=== PATIENT | male | born 2000 | race Caucasian/White ===

== ENCOUNTER 2020-07-11 04:18 | Emergency (ER) | payer OTHER ==
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
[2020-07-11 05:30] LABS: Absolute Neutrophil Ct (ANC) 7.53 (1.4-6.9); BASOPHIL % 0.6 % (0.0-0.4); Basophil (Absolute #) 0.07 (0-0.4); Eosinophil % 1.2 % (0.00-5.0); Eosinophil (Absolute #) 0.13 (0-0.5); Hematocrit 44.5 % (42-50); Hemoglobin 15.1 gm/dl (12.5-18.0); Lymphocytes % 21.2 % (24.0-44.0); Mean Cell Volume 83.6 fl (78-100); Mean Corpuscular Hemoglobin 28.4 pg (26-32); Mean Corpuscular Hgb Concent. 33.9 g/dl (32-36); Mean Platelet Volume 11.3 fl (7.5-11.0); Monocyte (Absolute #) 0.83 (0.0-1.3); Monocytes % 7.6 % (0.0-12.0); Neutrophil % 69.4 % (36.0-66.0); Platelet Count 316 K/mm3 (150-450); Red Blood Count 5.32 M/mm3 (4.1-5.6); Red Cell Distribution Width 12.2 % (11.5-14.0); White Blood Count 10.9 K/mm3 (4.0-10.5)
[2020-07-11 05:32] VITALS: BP 143/86; PULSE 70; O2SAT 98
[2020-07-11 05:41] LABS: Appearance CLEAR (CLEAR); Bilirubin NEGATIVE (NEGATIVE); Blood NEGATIVE Ery/ul (0-5); Glucose NEGATIVE (NEGATIVE); Ketones NEGATIVE (NEGATIVE); Leukocyte Esterase NEGATIVE (NEGATIVE); Mucus SLIGHT /HPF (NEGATIVE); Nitrite NEGATIVE (NEGATIVE); Protein,Urine Dip NEGATIVE (Negative); Specific Gravity 1.015 (1.005-1.025); Urobilinogen NEGATIVE mg/dL (0-1)
[2020-07-11 05:42] LABS: ALKALINE PHOSPHATASE 61 U/L (38-126); ANION GAP 12.7 MEQ/L (5-15); BLOOD UREA NITROGEN 15 mg/dL (9-20); CHLORIDE 101 mmol/L (98-107); Calcium 9.8 mg/dL (8.4-10.2); Carbon Dioxide 27 mmol/L (22-30); Creatinine 1 0.75 mg/dL (0.66-1.25); EST GLOMERULAR FILTRATION RATE > 60.0 ML/MIN; Glucose 107 mg/dL (74-106); Potassium 3.7 mmol/L (3.5-5.1); SGOT/AST 27 U/L (17-59); SGPT/ALT 30 U/L (0-50); SODIUM 137 mmol/L (137-145); Total Protein 7.8 g/dL (6.3-8.2)
[2020-07-11 05:45] LABS: Bacteria NONE SEEN /HPF (NEGATIVE); WBC NONE SEEN /HPF (0-5)
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
== END 2020-07-11 05:29 | disposition home or self-care (01) ==
LOC: ED 04:18
DX: Z04.2 Encounter for examination and observation following work accident (principal)
CPT/HCPCS: 36415; 72050; 80053; 81001; 85025; 99284

== ENCOUNTER 2024-10-17 02:23 | Emergency (ER) | payer OTHER ==
--- NOTE | 2024-10-17 02:35 | ERPHSYRPT ---
- History of Present Illness Time Seen by Provider: 10/17/24 02:33 Source: patient Exam Limitations: no limitations Allergies/Adverse Reactions: No Known Drug Allergies Allergy (Unverified 07/11/20 04:20) Home Medications: No Reportable Medications [No Reported Medications] 07/11/20 [History] Hx Tetanus, Diphtheria Vaccination/Date Given: Yes Hx Influenza Vaccination/Date Given: Yes - Review of Systems Constitutional: No Symptoms, No Fever, No Chills Eyes: No Symptoms Ears, Nose, & Throat: No Symptoms Respiratory: No Symptoms, No Cough, No Dyspnea Cardiac: No Symptoms, No Chest Pain, No Edema, No Syncope Abdominal/Gastrointestinal: No Symptoms, No Abdominal Pain, No Nausea, No Vomiting, No Diarrhea Genitourinary Symptoms: No Symptoms, No Dysuria Musculoskeletal: No Symptoms, No Back Pain, No Neck Pain Skin: No Symptoms, No Rash Neurological: No Symptoms, No Dizziness, No Focal Weakness, No Sensory Changes Psychological: No Symptoms Endocrine: No Symptoms Hematologic/Lymphatic: No Symptoms Immunological/Allergic: No Symptoms All Other Systems: Reviewed and Negative - Past Medical History Pertinent Past Medical History: No Neurological History: No Pertinent History Cardiac History: No Pertinent History Respiratory History: Other Endocrine Medical History: No Pertinent History Musculoskeletal History: Fractures Other Medical History: HAD COVID NOTED IN DECEMBER 2021 - Past Surgical History Past Surgical History: No - Social History Smoking Status: Never smoker Exposure to second hand smoke: No Drug Use: none Patient Lives Alone: Yes - Physical Exam General Appearance: no apparent distress, alert Eye Exam: PERRL/EOMI, eyes nml inspection Ears, Nose, Throat Exam: normal ENT inspection, pharynx normal, moist mucous membranes Neck Exam: normal inspection, non-tender, supple, full range of motion Respiratory Exam: normal breath sounds, lungs clear, airway intact, No respiratory distress Cardiovascular Exam: regular rate/rhythm, normal heart sounds, normal peripheral pulses Gastrointestinal/Abdomen Exam: soft, normal bowel sounds, No tenderness, No mass Back Exam: normal inspection, normal range of motion, No CVA tenderness, No vertebral tenderness Extremity Exam: normal inspection, normal range of motion, pelvis stable Neurologic Exam: alert, oriented x 3, cooperative, normal mood/affect, sensation nml, No motor deficits Skin Exam: normal color, warm, dry, No rash Lymphatic Exam: No adenopathy SpO2 Interpretation: normal O2 Delivery: Room Air - Course Nursing assessment & vital signs reviewed: Yes EKG Interpreted by Me: RATE ([id number]), Sinus Rhythm, NORMAL AXIS, NORMAL INTERVALS, NORMAL QRS Ordered Tests: Active Orders 24 hr Category Date Time Status Pot Sander STAT Care 10/17/24 02:32 Active EKG-ER Only STAT Care 10/17/24 02:31 Active IV Insertion STAT Care 10/17/24 02:31 Active CBC W DIFF Stat Lab 10/17/24 02:31 Ordered CMP Stat Lab 10/17/24 02:31 Ordered D-DIMER QUANTITATIVE Stat Lab 10/17/24 02:31 Ordered ETHYL ALCOHOL Stat Lab 10/17/24 02:31 Ordered NT PRO BNPII Stat Lab 10/17/24 Ordered TROPONIN Q4H Lab 10/17/24 02:45 Ordered TROPONIN Q4H Lab 10/17/24 06:45 Ordered TROPONIN Q4H Lab 10/17/24 10:45 Ordered UA W/RFX UR CULTURE Stat Lab 10/17/24 02:32 Ordered Urine Triage Profile Stat Lab 10/17/24 02:32 Ordered Medication Summary Generic Name Dose Route Start Last Admin Trade Name Freq PRN Reason Stop Dose Admin Sodium Chloride 1,000 mls @ 100 mls/hr 10/17/24 02:45 Sodium Chloride 0.9% 1000 Ml IV 11/16/24 02:44 .Q10H EVELIO Discontinued Medications Generic Name Dose Route Start Last Admin Trade Name Freq PRN Reason Stop Dose Admin Ondansetron HCl 4 mg 10/17/24 02:33 Ondansetron Hcl 4 Mg/2 Ml Vial IV 10/17/24 02:34 STAT ONE - Departure Referrals: ELOINA BUCK MD [Primary Care Provider] - Follow up/PCP as directed
[2024-10-17] MEDS ORDERED: Zofran 4 MG/2 ML VIAL ONE ×2 (02:40→03:27)
[2024-10-17] MEDS: Zofran 4 MG/2 ML VIAL IV ONE ×2 (02:44→03:29)
[2024-10-17] MEDS ORDERED: Sodium Chloride 0.9% 1000 ML 1,000 ML ONE (02:45)
[2024-10-17 02:46] LABS: BASOPHIL % 1.1 % (0.2-1.2); Eosinophil % 2.1 % (0.8-7.0); Eosinophil (Absolute #) 0.19 x10^3/uL (0.04-0.54); Hematocrit 41.7 % (40.1-51.0); Hemoglobin 14.6 g/dL (13.7-17.5); IMMATURE GRAN # 0.02 x10^3u/L (0.001-0.031); IMMATURE GRAN % 0.2 % (0.001-0.429); Lymphocyte (Absolute #) 4.41 x10^3/uL (1.32-3.57); Lymphocytes % 48.2 % (21.8-53.1); Mean Cell Volume 82.2 fL (79.0-92.2); Mean Corpuscular Hemoglobin 28.8 pg (25.7-32.2); Mean Platelet Volume 11.3 fL (9.4-12.4); Monocyte (Absolute #) 0.73 x10^3/uL (0.30-0.82); Neutrophil % 40.4 % (34.0-67.9); Platelet Count 321 x10^3/uL (163-337); Red Blood Count 5.07 x10^6/uL (4.63-6.08); Red Cell Distribution Width 11.8 % (11.6-14.4); White Blood Count 9.2 x10^3/uL (4.23-9.07)
[2024-10-17] MEDS: Sodium Chloride 0.9% 1000 ML 1,000 ML IV SCH (02:46)
[2024-10-17 02:53] VITALS: BP 145/54; PULSE 89; RESP 18; TEMP 96.4; O2SAT 98
[2024-10-17 03:00] LABS: ALBUMIN 4.9 g/dL (3.5-5.0); ALKALINE PHOSPHATASE 84 U/L (38-126); ANION GAP 19.5 MEQ/L (5-15); BLOOD UREA NITROGEN 12 mg/dL (9-20); CHLORIDE 104 mmol/L (98-107); Calcium 9.9 mg/dL (8.4-10.2); Carbon Dioxide 18 mmol/L (22-30); EST GLOMERULAR FILTRATION RATE 125.2 ML/MIN; ETHYL ALCOHOL < 10 mg/dL (0-10); Glucose 137 mg/dL (74-106); Potassium 3.2 mmol/L (3.5-5.1); SGOT/AST 51 U/L (17-59); SGPT/ALT 83 U/L (0-50); SODIUM 138 mmol/L (135-145); Total Protein 7.2 g/dL (6.3-8.2)
[2024-10-17 03:12] LABS: NT PRO BNPII < 20.0 pg/mL (<300); TROPONIN < 0.012 ng/mL (0.000-0.033)
[2024-10-17 03:22] LABS: ACETAMINOPHEN < 10 ug/ml (10-30); SALICYLATE < 1.0 mg/dL (2-20)
[2024-10-17] MEDS ORDERED: Klor Con ONE (03:27)
[2024-10-17] MEDS: Klor Con PO ONE (03:30)
--- NOTE | 2024-10-17 03:37 | ERPHSYRPT ---
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 substance did not test positive for anyt fredy. earlier tonight around 2200. tonight around 0030 he began getting sick and vomiting, became very dizzy and had numbness and twitching in his arms, spasming in his hands. Triage Nursing Assessment: pt alert and oriented, answers questions approp.pt ambualtes into room iwth steady gait noted, respirations nonlabored. skin warm and dry. abd soft and nontender. bowel sounds present x4. Physician History: Patient is a 24-year-old male presents to our emergency department for evaluation. Patient reports feeling ill. Patient experiencing numbness of both distal upper extremities. Patient appears to be hyperventilating. Patient believes he may have been exposed to a toxic substance. 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 The substance did not test positive for anything significant At approximately 12:30 AM he began to feel ill. Patient was concerned that he may have been exposed to a strong narcotic causing him to feel sick and he then self administered 2 doses of Narcan. Prior to arrival patient began to feel dizzy. He vomited. Patient observed muscle spasms of his hands. Patient vomited in our ED. No active pain. at bedside. They voiced no other complaints or concerns at this time. Portions of this note were created with voice recognition technology. There may be grammatical, spelling, punctuation or sound alike errors Timing/Duration: today Severity: moderate Modifying Factors: Improves With: nothing Associated Symptoms: denies symptoms Allergies/Adverse Reactions: No Known Drug Allergies Allergy (Verified 10/17/24 02:53) Home Medications: No Reportable Medications [No Reported Medications] 07/11/20 [History] Hx Tetanus, Diphtheria Vaccination/Date Given: Yes Hx Influenza Vaccination/Date Given: Yes Hx Pneumococcal Vaccination/Date Given: No Travel Risk - International Travel Have you traveled outside of the country in past 3 weeks: No - Emerging Infectious Disease Are you exhibiting symptoms associated with any current EIDs: No - Review of Systems Constitutional: No Symptoms, No Fever, No Chills Eyes: No Symptoms Ears, Nose, & Throat: No Symptoms Respiratory: No Symptoms, No Cough, No Dyspnea Cardiac: No Symptoms, No Chest Pain, No Edema, No Syncope Abdominal/Gastrointestinal: No Symptoms, No Abdominal Pain, No Nausea, No Vomiting, No Diarrhea Genitourinary Symptoms: No Symptoms, No Dysuria Musculoskeletal: No Symptoms, No Back Pain, No Neck Pain Skin: No Symptoms, No Rash Neurological: No Symptoms, No Dizziness, No Focal Weakness, No Sensory Changes Psychological: No Symptoms Endocrine: No Symptoms Hematologic/Lymphatic: No Symptoms Immunological/Allergic: No Symptoms All Other Systems: Reviewed and Negative - Past Medical History Pertinent Past Medical History: No Neurological History: No Pertinent History Cardiac History: No Pertinent History Respiratory History: Other Endocrine Medical History: No Pertinent History Musculoskeletal History: Fractures Other Medical History: HAD COVID NOTED IN DECEMBER 2021 - Past Surgical History Past Surgical History: No - Social History Smoking Status: Never smoker Exposure to second hand smoke: No Drug Use: none Patient Lives Alone: Yes - Social Determinants of Health Will the patient participate in the screening: Declined to provide - Nursing Vital Signs Nursing Vital Signs: Initial Vital Signs Temperature 96.4 F 10/17/24 02:28 Pulse Rate 89 10/17/24 02:28 Respiratory Rate 18 10/17/24 02:28 Blood Pressure 145/54 10/17/24 02:28 O2 Sat by Pulse Oximetry 98 10/17/24 02:28 Pain Scale Pain Intensity 0 - Physical Exam General Appearance: no apparent distress, alert Eye Exam: PERRL/EOMI, eyes nml inspection Ears, Nose, Throat Exam: normal ENT inspection, moist mucous membranes Neck Exam: normal inspection, non-tender, supple, full range of motion Respiratory Exam: normal breath sounds, lungs clear, airway intact, No respiratory distress Cardiovascular Exam: regular rate/rhythm, normal heart sounds, normal peripheral pulses Gastrointestinal/Abdomen Exam: soft, normal bowel sounds, No tenderness, No mass Back Exam: normal inspection, normal range of motion, No CVA tenderness, No vertebral tenderness Extremity Exam: normal inspection, normal range of motion, pelvis stable Neurologic Exam: alert, oriented x 3, cooperative, normal mood/affect, sensation nml, No motor deficits Skin Exam: normal color, warm, dry, No rash Lymphatic Exam: No adenopathy SpO2 Interpretation: normal SpO2: 98 O2 Delivery: Room Air - Course Nursing assessment & vital signs reviewed: Yes EKG Interpreted by Me: RATE ([id number]), Sinus Rhythm, NORMAL AXIS, NORMAL INTERVALS, NORMAL QRS Ordered Tests: Active Orders 24 hr Category Date Time Status Harp Regulator STAT Care 10/17/24 02:32 Active EKG-ER Only STAT Care 10/17/24 02:31 Active IV Insertion STAT Care 10/17/24 02:31 Active ACETAMINOPHEN Stat Lab 10/17/24 02:30 Completed CBC W DIFF Stat Lab 10/17/24 02:40 Completed CMP Stat Lab 10/17/24 02:40 Completed D-DIMER QUANTITATIVE Stat Lab 10/17/24 02:40 Completed ETHYL ALCOHOL Stat Lab 10/17/24 02:40 Completed NT PRO BNPII Stat Lab 10/17/24 02:40 Completed SALICYLATE Stat Lab 10/17/24 02:30 Completed TROPONIN Q4H Lab 10/17/24 02:40 Completed TROPONIN Q4H Lab 10/17/24 06:45 Ordered TROPONIN Q4H Lab 10/17/24 10:45 Ordered UA W/RFX UR CULTURE Stat Lab 10/17/24 03:39 Completed Urine Triage Profile Stat Lab 10/17/24 03:39 Completed Medication Summary Generic Name Dose Route Start Last Admin Trade Name Freq PRN Reason Stop Dose Admin Sodium Chloride 1,000 mls @ 100 mls/hr 10/17/24 02:45 10/17/24 03:26 Sodium Chloride 0.9% 1000 Ml IV 11/16/24 02:44 999 mls/hr .Q10H EVELIO Infusion Discontinued Medications Generic Name Dose Route Start Last Admin Trade Name Freq PRN Reason Stop Dose Admin Ondansetron HCl 4 mg 10/17/24 02:33 10/17/24 02:44 Ondansetron Hcl 4 Mg/2 Ml Vial IV 10/17/24 02:34 4 mg STAT ONE Administration Ondansetron HCl Confirm 10/17/24 02:40 Ondansetron Hcl 4 Mg/2 Ml Vial Administered 10/17/24 02:41 Dose 4 mg .ROUTE .STK-MED ONE Ondansetron HCl 4 mg 10/17/24 03:24 10/17/24 03:29 Ondansetron Hcl 4 Mg/2 Ml Vial IV 10/17/24 03:25 4 mg STAT ONE Administration Ondansetron HCl Confirm 10/17/24 03:27 Ondansetron Hcl 4 Mg/2 Ml Vial Administered 10/17/24 03:28 Dose 4 mg .ROUTE .STK-MED ONE Potassium Chloride 40 meq 10/17/24 03:19 10/17/24 03:30 Potassium Chloride Tab 10 Meq Tab PO 10/17/24 03:20 40 meq STAT ONE Administration Potassium Chloride Confirm 10/17/24 03:27 Potassium Chloride Tab 10 Meq Tab Administered 10/17/24 03:28 Dose 40 meq .ROUTE .STK-MED ONE Lab/Rad Data: Laboratory Result Diagrams 10/17/24 02:40 10/17/24 02:40 Laboratory Results 10/17/24 10/17/24 10/17/24 Range/Units 03:39 03:39 02:40 WBC (4.23-9.07) x10^3/uL RBC (4.63-6.08) x10^6/uL Hgb (13.7-17.5) g/dL Hct (40.1-51.0) % MCV (79.0-92.2) fL MCH (25.7-32.2) pg MCHC (32.3-36.5) g/dL RDW (11.6-14.4) % Plt Count (163-337) x10^3/uL MPV (9.4-12.4) fL Gran % (34.0-67.9) % Immature Gran % (Auto) (0.001-0.429) % Nucleat RBC Rel Count (0.00-0.2) % Eos # (Auto) (0.04-0.54) x10^3/uL Immature Gran # (Auto) (0.001-0.031) x10^3u/L Absolute Lymphs (auto) (1.32-3.57) x10^3/uL Absolute Monos (auto) (0.30-0.82) x10^3/uL Absolute Nucleated RBC (0.00-0.012) x10^3u/L Lymphocytes % (21.8-53.1) % Monocytes % (5.3-12.2) % Eosinophils % (0.8-7.0) % Basophils % (0.2-1.2) % Absolute Granulocytes (1.78-5.38) x10^3/uL Basophils # (0.01-0.08) x10^3/uL D-Dimer (0.0-0.50) mg/L Sodium (135-145) mmol/L Potassium (3.5-5.1) mmol/L Chloride (98-107) mmol/L Carbon Dioxide (22-30) mmol/L Anion Gap (5-15) MEQ/L BUN (9-20) mg/dL Creatinine (0.66-1.25) mg/dL Estimated GFR ML/MIN Glucose (74-106) mg/dL Calcium (8.4-10.2) mg/dL Total Bilirubin (0.2-1.3) mg/dL AST (17-59) U/L ALT (0-50) U/L Alkaline Phosphatase (38-126) U/L Troponin I < 0.012 (0.000-0.033) ng/mL NT-Pro-B Natriuret Pep < 20.0 (<300) pg/mL Serum Total Protein (6.3-8.2) g/dL Albumin (3.5-5.0) g/dL Urine Color Yellow (Yellow) Urine Appearance Clear (Clear) Urine pH 6.5 (4.6-8.0) Ur Specific Harmony 1.020 (1.005-1.030) Urine Protein Negative (Negative) Urine Glucose (UA) Negative (Negative) mg/dL Urine Ketones 15 A (Negative) Urine Blood Negative (Negative) Urine Nitrite Negative (Negative) Urine Bilirubin Negative (Negative) Urine Urobilinogen 0.2 (0.2) mg/dL Ur Leukocyte Esterase Trace A (Negative) U Hyaline Cast (Auto) NONE SEEN (0-2) /LPF Urine Microscopic RBC 0-2 (0-5) /HPF Urine Microscopic WBC 0-2 (0-5) /HPF Ur Epithelial Cells None Seen (None Seen) /HPF Urine Bacteria None Seen (None Seen) /HPF Urine Culture Reflexed NO (NO) Salicylates (2-20) mg/dL Urine Opiates Level NEGATIVE (NEGATIVE) Ur Methadone NEGATIVE (NEGATIVE) Acetaminophen (10-30) ug/ml Urine Barbiturates NEGATIVE (NEGATIVE) Ur Phencyclidine (PCP) NEGATIVE (NEGATIVE) Urine Amphetamine NEGATIVE (NEGATIVE) U Benzodiazepine Level NEGATIVE (NEGATIVE) Urine Cocaine NEGATIVE (NEGATIVE) Urine Marijuana (THC) NEGATIVE (NEGATIVE) Ethyl Alcohol (0-10) mg/dL 12/12/24 12/12/24 12/12/24 Range/Units 02:40 02:40 02:40 WBC 9.2 H (4.23-9.07) x10^3/uL RBC 5.07 (4.63-6.08) x10^6/uL Hgb 14.6 (13.7-17.5) g/dL Hct 41.7 (40.1-51.0) % MCV 82.2 (79.0-92.2) fL MCH 28.8 (25.7-32.2) pg MCHC 35.0 (32.3-36.5) g/dL RDW 11.8 (11.6-14.4) % Plt Count 321 (163-337) x10^3/uL MPV 11.3 (9.4-12.4) fL Gran % 40.4 (34.0-67.9) % Immature Gran % (Auto) 0.2 (0.001-0.429) % Nucleat RBC Rel Count 0.0 (0.00-0.2) % Eos # (Auto) 0.19 (0.04-0.54) x10^3/uL Immature Gran # (Auto) 0.02 (0.001-0.031) x10^3u/L Absolute Lymphs (auto) 4.41 H (1.32-3.57) x10^3/uL Absolute Monos (auto) 0.73 (0.30-0.82) x10^3/uL Absolute Nucleated RBC 0.00 (0.00-0.012) x10^3u/L Lymphocytes % 48.2 (21.8-53.1) % Monocytes % 8.0 (5.3-12.2) % Eosinophils % 2.1 (0.8-7.0) % Basophils % 1.1 (0.2-1.2) % Absolute Granulocytes 3.70 (1.78-5.38) x10^3/uL Basophils # 0.10 H (0.01-0.08) x10^3/uL D-Dimer < 0.19 (0.0-0.50) mg/L Sodium 138 (135-145) mmol/L Potassium 3.2 L (3.5-5.1) mmol/L Chloride 104 (98-107) mmol/L Carbon Dioxide 18 L (22-30) mmol/L Anion Gap 19.5 H (5-15) MEQ/L BUN 12 (9-20) mg/dL Creatinine 0.80 (0.66-1.25) mg/dL Estimated GFR 125.2 ML/MIN Glucose 137 H (74-106) mg/dL Calcium 9.9 (8.4-10.2) mg/dL Total Bilirubin 0.50 (0.2-1.3) mg/dL AST 51 (17-59) U/L ALT 83 H (0-50) U/L Alkaline Phosphatase 84 (38-126) U/L Troponin I (0.000-0.033) ng/mL NT-Pro-B Natriuret Pep (<300) pg/mL Serum Total Protein 7.2 (6.3-8.2) g/dL Albumin 4.9 (3.5-5.0) g/dL Urine Color (Yellow) Urine Appearance (Clear) Urine pH (4.6-8.0) Ur Specific Harmony (1.005-1.030) Urine Protein (Negative) Urine Glucose (UA) (Negative) mg/dL Urine Ketones (Negative) Urine Blood (Negative) Urine Nitrite (Negative) Urine Bilirubin (Negative) Urine Urobilinogen (0.2) mg/dL Ur Leukocyte Esterase (Negative) U Hyaline Cast (Auto) (0-2) /LPF Urine Microscopic RBC (0-5) /HPF Urine Microscopic WBC (0-5) /HPF Ur Epithelial Cells (None Seen) /HPF Urine Bacteria (None Seen) /HPF Urine Culture Reflexed (NO) Salicylates (2-20) mg/dL Urine Opiates Level (NEGATIVE) Ur Methadone (NEGATIVE) Acetaminophen (10-30) ug/ml Urine Barbiturates (NEGATIVE) Ur Phencyclidine (PCP) (NEGATIVE) Urine Amphetamine (NEGATIVE) U Benzodiazepine Level (NEGATIVE) Urine Cocaine (NEGATIVE) Urine Marijuana (THC) (NEGATIVE) Ethyl Alcohol < 10 (0-10) mg/dL 10/17/24 Range/Units 02:30 WBC (4.23-9.07) x10^3/uL RBC (4.63-6.08) x10^6/uL Hgb (13.7-17.5) g/dL Hct (40.1-51.0) % MCV (79.0-92.2) fL MCH (25.7-32.2) pg MCHC (32.3-36.5) g/dL RDW (11.6-14.4) % Plt Count (163-337) x10^3/uL MPV (9.4-12.4) fL Gran % (34.0-67.9) % Immature Gran % (Auto) (0.001-0.429) % Nucleat RBC Rel Count (0.00-0.2) % Eos # (Auto) (0.04-0.54) x10^3/uL Immature Gran # (Auto) (0.001-0.031) x10^3u/L Absolute Lymphs (auto) (1.32-3.57) x10^3/uL Absolute Monos (auto) (0.30-0.82) x10^3/uL Absolute Nucleated RBC (0.00-0.012) x10^3u/L Lymphocytes % (21.8-53.1) % Monocytes % (5.3-12.2) % Eosinophils % (0.8-7.0) % Basophils % (0.2-1.2) % Absolute Granulocytes (1.78-5.38) x10^3/uL Basophils # (0.01-0.08) x10^3/uL D-Dimer (0.0-0.50) mg/L Sodium (135-145) mmol/L Potassium (3.5-5.1) mmol/L Chloride (98-107) mmol/L Carbon Dioxide (22-30) mmol/L Anion Gap (5-15) MEQ/L BUN (9-20) mg/dL Creatinine (0.66-1.25) mg/dL Estimated GFR ML/MIN Glucose (74-106) mg/dL Calcium (8.4-10.2) mg/dL Total Bilirubin (0.2-1.3) mg/dL AST (17-59) U/L ALT (0-50) U/L Alkaline Phosphatase (38-126) U/L Troponin I (0.000-0.033) ng/mL NT-Pro-B Natriuret Pep (<300) pg/mL Serum Total Protein (6.3-8.2) g/dL Albumin (3.5-5.0) g/dL Urine Color (Yellow) Urine Appearance (Clear) Urine pH (4.6-8.0) Ur Specific Harmony (1.005-1.030) Urine Protein (Negative) Urine Glucose (UA) (Negative) mg/dL Urine Ketones (Negative) Urine Blood (Negative) Urine Nitrite (Negative) Urine Bilirubin (Negative) Urine Urobilinogen (0.2) mg/dL Ur Leukocyte Esterase (Negative) U Hyaline Cast (Auto) (0-2) /LPF Urine Microscopic RBC (0-5) /HPF Urine Microscopic WBC (0-5) /HPF Ur Epithelial Cells (None Seen) /HPF Urine Bacteria (None Seen) /HPF Urine Culture Reflexed (NO) Salicylates < 1.0 L (2-20) mg/dL Urine Opiates Level (NEGATIVE) Ur Methadone (NEGATIVE) Acetaminophen < 10 L (10-30) ug/ml Urine Barbiturates (NEGATIVE) Ur Phencyclidine (PCP) (NEGATIVE) Urine Amphetamine (NEGATIVE) U Benzodiazepine Level (NEGATIVE) Urine Cocaine (NEGATIVE) Urine Marijuana (THC) (NEGATIVE) Ethyl Alcohol (0-10) mg/dL - Progress Progress: improved Progress Note: Patient is a 24-year-old male presents to our emergency department for evaluation of nausea vomiting extremity paresthesias hyperventilation. Physical exam otherwise nonremarkable. Laboratory workup reveals a mild hypokalemia likely secondary to vomiting. Patient received oral potassium replacement. Toxicology screen within normal limits. IV fluids infused. Patient received Zofran 4 mg IV x 2 doses. Patient observed. Patient reassessed. Patient states he feels much better and feels he is ready for discharge. Vital stable. at bedside. They voiced no other complaints or concerns at this time. No indication for further workup patient agrees to follow-up with his primary care doctor within 48 hours for reevaluation. Portions of this note were created with voice recognition technology. There may be grammatical, spelling, punctuation or sound alike errors Complexity of problem addressed is moderate acute complicated no critical care time. Complexity of data reviewed and analyzed is moderate. Test ordered chest reviewed results analyzed and correlated clinically with history and physical exam. Risk of complication and or risk of morbidity/mortality of patient management is low. Vital stable. Time spent to discharge patient is approximately 10 minutes. Plan of care established for shared decision making. No social determinants of health present to impede follow-up. Portions of this note were created with voice recognition technology. There may be grammatical, spelling, punctuation or sound alike errors 10/17/24 04:26 Counseled pt/family regarding: lab results, diagnosis, need for follow-up - Departure Departure Disposition: Home Clinical Impression: Nausea and vomiting, Panic attack, Exposure to potentially hazardous chemical, Hypokalemia Condition: Stable Critical Care Time: No Referrals: ELOINA BUCK MD [Primary Care Provider] - Follow up/PCP as directed Additional Instructions: Discharge/Care Plan KAYLA SYED was seen on 10/17/24 in the Emergency Room. The patient was counseled regarding Diagnosis,Lab results, Imaging studies, need for follow up and when to return to the Emergency Room. Prescriptions given: Discharge Note I have spoken with the patient and/or caregivers. I have explained the patient's condition, diagnosis and treatment plan based on the information available to me at this time. I have answered the patient's and/or caregiver's questions and addressed any concerns. The patient and/or caregivers have as good understanding of the patient's diagnosis, condition and treatment plan as can be expected at this point. The vital signs have been stable. The patient's condition is stable and appropriate for discharge from the emergency department. The patient will pursue further outpatient evaluation with the primary care physician or other designated or consulting physician as outlined in the discharge instructions. The patient and/or caregivers are agreeable to this plan of care and follow-up instructions have been explained in detail. The patient and/or caregivers have received these instruction. The patient/and or caregivers are aware that any significant change in condition or worsening of symptoms should prompt an immediate return to this or the closest emergency department or call 911.
[2024-10-17 03:52] LABS: Appearance Clear (Clear); Bacteria None Seen /HPF (None Seen); Bilirubin Negative (Negative); Blood Negative (Negative); Epithelial Cells None Seen /HPF (None Seen); Glucose, Urine Negative (Negative); Hyaline Casts NONE SEEN /LPF (0-2); Ketones 15 (Negative); Leukocyte Esterase Trace (Negative); Nitrite Negative (Negative); Ph 6.5 (4.6-8.0); Protein,Urine Dip Negative (Negative); RBC 0-2 /HPF (0-5); Urobilinogen 0.2 mg/dL (0.2); WBC 0-2 /HPF (0-5)
[2024-10-17 04:01] LABS: Amphetamine,Urine NEGATIVE (NEGATIVE); Barbiturate,Urine NEGATIVE (NEGATIVE); Benzodiazepine,Urine NEGATIVE (NEGATIVE); Cocaine,Urine NEGATIVE (NEGATIVE); Methadone,Urine NEGATIVE (NEGATIVE); Opiate,Urine NEGATIVE (NEGATIVE); PCP,Urine NEGATIVE (NEGATIVE); THC,Urine NEGATIVE (NEGATIVE)
== END 2024-10-17 04:57 | disposition home or self-care (01) ==
LOC: ED 02:23
DX: R11.2 Nausea with vomiting, unspecified (principal); R20.0 Anesthesia of skin; E87.6 Hypokalemia; F41.0 Panic disorder [episodic paroxysmal anxiety]; Z77.29 Contact with and (suspected) exposure to other hazardous substances
CPT/HCPCS: 36415; 80053; 80143; 80179; 80307; 81001; 82077; 83880; 84484; 85025; 85379; 93005; 96360; 96374; 96375; 96376; 99284; J2405; A9270-GY